=== PATIENT | female | born 1945 | race Caucasian/White ===

== ENCOUNTER → 2021-05-10 | Day surgery (SDC) | payer MEDICARE ==
[~2021-05-10] VITALS: Ht 157.5 cm; Wt 58.1 kg
[~2021-05-10] MED LIST: ARAV20 PO; BACITRACIN 15GM TUBE TOP ONE; BUPIVACAINE HCL/PF 0.5% (5MG/ML) 10ML ONE; CEFAZOLIN SODIUM 1000MG/VIAL ONE; DILT360C37 PO; DULO30CA2 PO; FENTANYL CITRATE/PF 50MCG/ML 2ML VIAL ONE; HEPARIN 1000 UNITS/ML 10ML ONE; HEPARIN SODIUM 1,000 UNIT/1ML VIAL IV ONE; HYDR25TA PO; HYDROCODONE/ACETAMINOPHEN 5/325MG TABLET PO PRN; HYDROMORPHONE HCL/PF 2MG/ML CPJ IV PRN; KCL 10MEQ/50ML PREMIX 50 ML IV ONE; LIDOCAINE HCL 1% 20ML VIAL (Pyxis) INJ ONE; MEPERIDINE HCL/PF 25MG/ML CPJ IV PRN; ONDANSETRON HCL 4MG/2ML INJ IV PRN; POLYMYXIN B SULFATE 500000 UNITS/VIAL ONE; PROPOFOL 200MG/20ML VIAL IV ONE; SODIUM CHLORIDE 0.9% 1,000 ML IV SCH; SODIUM CHLORIDE 0.9% 1,000 ML ONE; THROMBIN (BOVINE) 5000 UNITS/VIAL TOP ONE
[2021-05-10 09:51] LABS: BASOPHILS % 0.7 % (0.0-2.0); EOSINOPHILS % 0.6 % (0.0-5.0); HEMATOCRIT. 38.2 % (36.0-48.0); HEMOGLOBIN. 13.4 g/dL (12.0-16.0); LYMPHOCYTES % 16.4 % (20.0-50.0); MEAN CORPUSCULAR VOLUME 93.7 fL (81.0-99.0); MEAN PLATELET VOLUME 6.7 fl (7.4-10.4); MONOCYTES % 8.9 % (2.0-8.0); NEUTROPHILS % 73.4 % (40.0-76.0); PLATELET 284 x1000/uL (130-400); RED BLOOD CELL COUNT 4.07 mill/uL (4.2-5.4); RED CELL DISTRIBUTION WIDTH 14.9 % (11.6-14.6)
[2021-05-10 10:02] LABS: PARTIAL THROMBOPLASTIN TIME 27.2 sec (23.4-31.0); PROTHROMBIN TIME 10.5 sec (9.6-11.0)
[2021-05-10] MEDS: POTASSIUM CHLORIDE INJ 40 MEQ in DEXT 5% WATER 250 ML IV NR (11:00)
[2021-05-10 14:37] VITALS: BP 175/84
== END | disposition home or self-care (01) ==
LOC: OR 09:08
PROVIDERS: ATTEND Surgery Vascular Surgery
DX: I74.2 Embolism and thrombosis of arteries of the upper extremities (principal); I10 Essential (primary) hypertension; M06.9 Rheumatoid arthritis, unspecified; Z79.899 Other long term (current) drug therapy; Z98.890 Other specified postprocedural states
CPT/HCPCS: 34101; 36415; 80048; 85025; 85610; 85730; 88305; 93005; C1884; J0690; J1170; J1644; J2175; J2704; J3010; J3480; J3490; J7030; J7060

== ENCOUNTER 2022-08-22 05:12 | Inpatient (IN) | payer MEDICARE ==
[~2022-08-22] VITALS: Ht 157.5 cm; Wt 59.0 kg
[~2022-08-22 05:12] MED LIST changes: -ARAV20 PO; +AZIL1TAB2 PO; -BACITRACIN 15GM TUBE TOP ONE; -BUPIVACAINE HCL/PF 0.5% (5MG/ML) 10ML ONE; +BUPR75TA8 PO; -CEFAZOLIN SODIUM 1000MG/VIAL ONE; -DILT360C37 PO; -DULO30CA2 PO; -FENTANYL CITRATE/PF 50MCG/ML 2ML VIAL ONE; -HEPARIN 1000 UNITS/ML 10ML ONE; -HEPARIN SODIUM 1,000 UNIT/1ML VIAL IV ONE; -HYDR25TA PO; -HYDROCODONE/ACETAMINOPHEN 5/325MG TABLET PO PRN; -HYDROMORPHONE HCL/PF 2MG/ML CPJ IV PRN; -KCL 10MEQ/50ML PREMIX 50 ML IV ONE; -LIDOCAINE HCL 1% 20ML VIAL (Pyxis) INJ ONE; -MEPERIDINE HCL/PF 25MG/ML CPJ IV PRN; -ONDANSETRON HCL 4MG/2ML INJ IV PRN; -POLYMYXIN B SULFATE 500000 UNITS/VIAL ONE; -PROPOFOL 200MG/20ML VIAL IV ONE; -SODIUM CHLORIDE 0.9% 1,000 ML IV SCH; -SODIUM CHLORIDE 0.9% 1,000 ML ONE; -THROMBIN (BOVINE) 5000 UNITS/VIAL TOP ONE
[2022-08-22 06:15] LABS: BASOPHILS % 0.5 % (0.0-2.0); HEMATOCRIT. 39.6 % (36.0-48.0); HEMOGLOBIN. 13.5 g/dL (12.0-16.0); LYMPHOCYTES % 13.6 % (20.0-50.0); MEAN CORPUSCULAR VOLUME 90.8 fL (81.0-99.0); MEAN PLATELET VOLUME 7.9 fl (7.4-10.4); MONOCYTES % 6.6 % (2.0-8.0); NEUTROPHILS % 78.3 % (40.0-76.0); PLATELET 207 x1000/uL (130-400); RED BLOOD CELL COUNT 4.36 mill/uL (4.2-5.4); RED CELL DISTRIBUTION WIDTH 14.7 % (11.6-14.6)
[2022-08-22] MEDS ORDERED: T3 PO (06:18)
[2022-08-22] MEDS ORDERED: BUPR150T3 PO (06:18)
[2022-08-22 06:22] LABS: PARTIAL THROMBOPLASTIN TIME 28.9 sec (23.4-31.0); PROTHROMBIN TIME 10.5 sec (9.6-11.0)
[2022-08-22] MEDS: SODIUM CHLORIDE 0.9% 1,000 ML IV SCH (06:30)
[2022-08-22] MEDS ORDERED: POLYMYXIN B SULFATE 500000 UNITS/VIAL ONE (06:31)
[2022-08-22] MEDS ORDERED: LIDOCAINE HCL 1% 10 MG/ML 10ML VIAL ONE (06:31)
[2022-08-22] MEDS ORDERED: BUPIVACAINE HCL/PF 0.5% (5MG/ML) 10ML ONE (06:31)
[2022-08-22] MEDS ORDERED: THROMBIN (BOVINE) 5000 UNITS/VIAL TOP ONE (06:31)
[2022-08-22] MEDS ORDERED: HEPARIN SODIUM 1,000 UNIT/1ML VIAL IV ONE (06:32)
[2022-08-22] MEDS ORDERED: BACITRACIN 15GM TUBE TOP ONE (06:32)
[2022-08-22] MEDS ORDERED: MIDAZOLAM HCL 2 MG/2 ML VIAL ONE (07:20)
[2022-08-22] MEDS ORDERED: PROPOFOL 200MG/20ML VIAL IV ONE (07:20)
[2022-08-22] MEDS ORDERED: HYDROCODONE/ACETAMINOPHEN 5/325MG TABLET PO PRN ×2 (07:30)
[2022-08-22] MEDS ORDERED: AZIL40TA PO (07:51)
[2022-08-22] MEDS ORDERED: LIDOCAINE HCL 1% 50ML VIAL (10MG/ML) ONE (07:55)
[2022-08-22] MEDS ORDERED: DEXAMETHASONE 4MG/ML 1ML VIAL ONE (07:56)
[2022-08-22] MEDS ORDERED: ONDANSETRON HCL 4MG/2ML INJ ONE (07:56)
[2022-08-22] MEDS ORDERED: FENTANYL CITRATE/PF 50MCG/ML 2ML VIAL ONE ×2 (07:56→08:05)
[2022-08-22] MEDS ORDERED: CEFAZOLIN SODIUM 1000MG/VIAL ONE (07:56)
[2022-08-22] MEDS ORDERED: FENTANYL CITRATE/PF 50MCG/ML 2ML VIAL IV PRN (08:45)
[2022-08-22] MEDS ORDERED: HYDROMORPHONE HCL/PF 2MG/ML CPJ IV PRN (08:45)
[2022-08-22] MEDS ORDERED: ATROPINE SULFATE 0.4MG/ML VIAL IV PRN (08:45)
[2022-08-22] MEDS ORDERED: PROTAMINE SULFATE 10MG/ML VIAL 5ML IV ONE (08:48)
[2022-08-22] MEDS ORDERED: HEPARIN 1000 UNITS/ML 10ML ONE (08:48)
[2022-08-22 12:00] VITALS: BP_SYST 100; BP_SYST 131; BP_DIAS 57; BP_DIAS 63
[2022-08-22] MEDS: MORPHINE SULFATE 4 MG/ML CPJ (NOT FOR IM USE) IV PRN ×3 (13:33→21:07)
[2022-08-22 16:00] VITALS: BP 133/51
[2022-08-22] MEDS ORDERED: CLONIDINE 0.1MG TABLET PO PRN (16:00)
[2022-08-22] MEDS ORDERED: ONDANSETRON HCL 4MG/2ML INJ IV PRN (16:00)
[2022-08-22] MEDS ORDERED: SODIUM CHLORIDE 0.9% 1,000 ML IV SCH (16:00)
[2022-08-22] MEDS ORDERED: ACETAMINOPHEN 325MG TABLET PO PRN (16:00)
[2022-08-22] MEDS ORDERED: NALOXONE HCL 0.4MG/ML VIAL IV PRN (16:15)
[2022-08-22 20:00] VITALS: BP 130/52
[2022-08-23] VITALS: BP 150/66
[2022-08-23 04:00] VITALS: BP 137/60
[2022-08-23] MEDS: MORPHINE SULFATE 4 MG/ML CPJ (NOT FOR IM USE) IV PRN ×2 (05:03→10:38)
[2022-08-23 08:00] VITALS: BP 135/59
[2022-08-23 08:43] LABS: BASOPHILS % 0.3 % (0.0-2.0); EOSINOPHILS % 0.3 % (0.0-5.0); HEMATOCRIT. 35.4 % (36.0-48.0); HEMOGLOBIN. 11.9 g/dL (12.0-16.0); LYMPHOCYTES % 20.1 % (20.0-50.0); MEAN CORPUSCULAR VOLUME 92.5 fL (81.0-99.0); MEAN PLATELET VOLUME 8.1 fl (7.4-10.4); MONOCYTES % 7.4 % (2.0-8.0); NEUTROPHILS % 71.9 % (40.0-76.0); PLATELET 197 x1000/uL (130-400); RED BLOOD CELL COUNT 3.82 mill/uL (4.2-5.4); RED CELL DISTRIBUTION WIDTH 14.7 % (11.6-14.6)
[2022-08-23 12:00] VITALS: BP 122/50
== END 2022-08-23 15:54 | disposition home or self-care (01) | DRG 253 ==
LOC: OR 05:12 → 6EST 05:13
PROVIDERS: ADMIT Internal Medicine; ATTEND Internal Medicine
PROC: 041K0JH Bypass Right Femoral Artery to Right Femoral Artery with Synthetic Substitute, Open Approach (ICD-10-PCS; principal; 2022-08-22)
DX: I73.9 Peripheral vascular disease, unspecified (principal); I74.5 Embolism and thrombosis of iliac artery; Z20.822 Contact with and (suspected) exposure to COVID-19; M19.90 Unspecified osteoarthritis, unspecified site; Z87.891 Personal history of nicotine dependence
CPT/HCPCS: 36415; 80048; 85025; 87426; 93005; C1768; C9803; J0690; J1100; J1170; J1644; J2250; J2270; J2405; J2704; J2720; J3010; J3490; J7030